=== PATIENT | female | born 1950 | race African-American/Black ===

== ENCOUNTER 2019-10-27 20:44 | Emergency (ER) | payer MEDICARE ==
[~2019-10-27] VITALS: Ht 158.8 cm; Wt 82.7 kg
[~2019-10-27 20:44] MED LIST: ASPI-630 PO; ATEN25TA PO; CLON0.5T PO; CLON1TAB PO; DOCU-109 PO; DULO30CA2 PO; DULO60CA6 PO; HYDR2TAB31 PO; LISI1TAB37 PO; METH750T2 PO; QUET25TA PO; TIZA4CAP3 PO; ZOLP10TA PO
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
[2019-10-27 21:27] LABS: BASO % 1 % (0-3); EOS % 0 % (0-3); HEMATOCRIT 37.8 % (36.0-47.0); HEMOGLOBIN 12.7 g/dL (12.0-15.5); LYMPH % 21 % (24-48); MEAN CORPUSCULAR HEMOGLOBIN 31 pg (25-35); MEAN CORPUSCULAR HGB CONC 34 g/dL (31-37); MEAN CORPUSCULAR VOLUME 92 fL (79-100); MONO # 0.4 x10^3/uL (0.0-1.1); MONO % 9 % (0-9); NEUT # 3.4 x10^3/uL (1.8-7.7); NEUT % 70 % (31-73); PLATELET COUNT 262 x10^3/uL (140-400); RED BLOOD COUNT 4.11 x10^6/uL (3.50-5.40); RED CELL DISTRIBUTION WIDTH 14.1 % (11.5-14.5); WHITE BLOOD COUNT 4.9 x10^3/uL (4.0-11.0)
[2019-10-27] MEDS ORDERED: IPRATRPIUM/ALBUTEROL 0.5/2.5MG 3 ML NEBU. NEB ONE (21:30)
[2019-10-27] MEDS ORDERED: methylPREDNISolone SOD SUCC PF 40 MG/ML VIAL. IV ONE (21:30)
[2019-10-27 21:34] LABS: CALCIUM 8.9 mg/dL (8.5-10.1); CREATININE 1.2 mg/dL (0.6-1.0); GFR 53.6; POTASSIUM 4.9 mmol/L (3.5-5.1)
[2019-10-27 21:39] LABS: ALBUMIN 3.5 g/dL (3.4-5.0); ALBUMIN/GLOBULIN RATIO 0.9 (1.0-1.7); TOTAL BILIRUBIN 0.2 mg/dL (0.2-1.0); TOTAL PROTEIN 7.5 g/dL (6.4-8.2)
[2019-10-27 21:42] LABS: % BANDS 4 % (0-9); % LYMPHS 28 % (24-48); % MONOS 6 % (0-10); % MYELOS 2 % (0-0); % SEGS 60 % (35-66)
[2019-10-27 21:45] LABS: PLT ESTIMATE ADEQUATE (ADEQUATE)
[2019-10-27 21:47] LABS: POLYCHROMASIA SLIGHT; TOXIC GRANULATION SLIGHT
--- NOTE | 2019-10-27 22:10 | RAD ---
PORTABLE CHEST 1V History: Reason: SOA / Spl. Instructions: / History: Comparison: None. Findings: Ill-defined patchy right upper and mid opacities. No pleural effusion. No pneumothorax. Normal heart size. Impression: 1. Ill-defined patchy right upper and mid opacities, may represent atelectasis or pneumonia including viral pneumonia. Electronically signed by: Hernandez Strauss DO (10/27/2019 10:07 PM) [facility]
[2019-10-27] MEDS ORDERED: AMOX1TAB61 PO (22:28)
[2019-10-27] MEDS ORDERED: CYCL10TA2 PO (22:28)
[2019-10-27] MEDS ORDERED: AZITHROMYCIN 250 MG TABLET. PO ONE (23:00)
[2019-10-27] MEDS ORDERED: AMOXICILLIN/K CLAV 875/125MG TABLET. PO ONE (23:00)
[2019-10-27 23:34] VITALS: BP 146/64
--- NOTE | 2019-10-28 10:40 | EKG ---
[facility] [address] [place] [address] Test Date: 2019-10-27 Test Time: 20:54:09 Pat Name: SAJAN SARABIA Department: Room: Gender: F Buying Agent: : [id number] Requested By: DAVIDSON GUERRA Order Number: [id number] Reading MD: Measurements Intervals Brick Rate: 57 P: 19 GA: 168 QRS: 4 QRSD: 72 T: 18 QT: 446 QTc: 437 Interpretive Statements SINUS RHYTHM NORMAL ECG RI6.02 No previous ECG available for comparison
--- NOTE | 2019-10-29 10:49 | NUR ---
IP: Attempted to reach pt by phone to give test results. No answer.
--- NOTE | 2019-10-29 13:00 | NUR ---
IP: Informed pt of Positive COVID test and need to quarantine for 14 days. Answered all questions. Pt verbalized understanding.
== END 2019-10-28 | disposition home or self-care (01) ==
LOC: ER 20:44
DX: U07.1 COVID-19 (principal); J18.9 Pneumonia, unspecified organism; R07.89 Other chest pain; R06.00 Dyspnea, unspecified; R09.81 Nasal congestion; F41.9 Anxiety disorder, unspecified; F32.9 Major depressive disorder, single episode, unspecified; I10 Essential (primary) hypertension; Z90.49 Acquired absence of other specified parts of digestive tract; Z90.710 Acquired absence of both cervix and uterus; Z98.890 Other specified postprocedural states; Z91.040 Latex allergy status; Z88.5 Allergy status to narcotic agent; Z88.8 Allergy status to other drugs, medicaments and biological substances
CPT/HCPCS: 36415; 71045; 80053; 83880; 84484; 85007; 85025; 93005; 94640; 96374; 99285; C9803; J2920; U0003